=== PATIENT | female | born 1955 | race Hispanic/Latino ===

== ENCOUNTER 2025-02-07 08:00 | Outpatient (CLI) | payer OTHER | END 2025-02-07 08:01 | disposition home or self-care (01) | LOC: PET 08:00 | PROVIDERS: ATTEND Internal Medicine Hematology & Oncology | DX: C90.00 Multiple myeloma not having achieved remission (principal); D47.2 Monoclonal gammopathy; E55.9 Vitamin D deficiency, unspecified | CPT/HCPCS: 78816; A9552 ==